=== PATIENT | male | born 1995 | race Caucasian/White ===

== ENCOUNTER 2018-02-07 16:07 | Emergency (ER) | payer BC, OTHER ==
[2018-02-07] MEDS ORDERED: Bacitracin Zinc 1 Packet ONE (16:49)
[2018-02-07] MEDS ORDERED: Lidocaine 1% w/Epinephrine 1:100K 20 ML VIAL ONE (16:49)
[2018-02-07] MEDS ORDERED: Adacel (T-DAP) 0.5 ML VIAL ONE (16:59)
== END 2018-02-07 17:24 | disposition home or self-care (01) ==
LOC: ERS 16:07
DX: S61.412A Laceration without foreign body of left hand, initial encounter (principal); Z23 Encounter for immunization; W26.0XXA Contact with knife, initial encounter
CPT/HCPCS: 12001; 90471; 90715; J2001